=== PATIENT | female | born 1975 | race Caucasian/White ===

== ENCOUNTER 2018-11-14 | Emergency (ER) | payer BC, OTHER ==
[2018-11-14] MEDS ORDERED: LORazepam 2 MG/ML SDV IM ONE (00:30)
[2018-11-14] MEDS ORDERED: Ketorolac 60 MG/2 ML SDV IM ONE (00:30)
--- NOTE | 2018-11-14 00:36 | EDM.PDOC ---
ED HPI GENERAL MEDICAL PROBLEM - General Chief Complaint: General Stated Complaint: right arm pain Time Seen by Provider: 11/14/18 00:10 Source of Information: Reports: Patient History Limitations: Reports: No Limitations - History of Present Illness INITIAL COMMENTS - FREE TEXT/NARRATIVE: 43 YO HF presents to ER complaining of right sided neck pain with radiation to right arm and hand. Pt reports she recently started a new position where she is standing and reaching for long periods of time. Pt reports she had noticed some neck discomfort related to her repetitive activities and states she took some ibuprofen which improved her symptoms. Pt reports today after working she noticed pain in her right arm and hand. Pt reports pain was worse with movement. Pt reports tonight when she lied down for bed her pain became worse prompting ER evaluation. Pt denies any chest pain, arm swelling, shortness of breath. Pt reports she has had similar pain in the past and had improvement with massage and physical therapy. Onset: Today Location: Reports: Neck, Upper Extremity, Right Quality: Reports: Ache Severity: Moderate Improves with: Reports: None Worsens with: Reports: Rest Associated Symptoms: Reports: No Other Symptoms - Related Data Home Meds: Home Meds Cyclobenzaprine [Flexeril] 10 mg PO TID PRN #15 tab 11/14/18 [Rx] predniSONE [Prednisone] 20 mg PO DAILY #15 tablet 11/14/18 [Rx] traMADol [Ultram] 50 mg PO Q4H PRN #12 tab 11/14/18 [Rx] Past Medical History - Past Health History Medical/Surgical History: Denies Medical/Surgical History ED ROS GENERAL - Review of Systems Review Of Systems: See Below Constitutional: Reports: No Symptoms HEENT: Reports: No Symptoms Respiratory: Reports: No Symptoms Cardiovascular: Reports: No Symptoms Endocrine: Reports: No Symptoms GI/Abdominal: Reports: No Symptoms : Reports: No Symptoms Musculoskeletal: Reports: Neck Pain, Arm Pain Skin: Reports: No Symptoms Neurological: Reports: No Symptoms, Tingling. Denies: Headache, Numbness, Paresthesia, Difficulty Walking, Change in Speech Psychiatric: Reports: No Symptoms Hematologic/Lymphatic: Reports: No Symptoms Immunologic: Reports: No Symptoms ED EXAM, GENERAL - Physical Exam Exam: See Below Exam Limited By: No Limitations General Appearance: Alert, WD/WN, No Apparent Distress Eye Exam: Bilateral Eye: EOMI, PERRL Nose: Normal Inspection, Normal Mucosa, No Blood Throat/Mouth: Normal Inspection, Normal Lips, Normal Teeth, Normal Gums, Normal Oropharynx, Normal Voice, No Airway Compromise Head: Atraumatic, Normocephalic Neck: Supple, Full Range of Motion, Tender Lateral Respiratory/Chest: No Respiratory Distress, Lungs Clear, Normal Breath Sounds, No Accessory Muscle Use, Chest Non-Tender Cardiovascular: Normal Peripheral Pulses, Regular Rate, Rhythm, No Edema, No Gallop, No JVD, No Murmur, No Rub GI/Abdominal: Normal Bowel Sounds, Soft, Non-Tender, No Organomegaly, No Distention, No Abnormal Bruit, No Mass Back Exam: Normal Inspection, Full Range of Motion, NT Extremities: Normal Inspection, Normal Range of Motion, Non-Tender, Normal Capillary Refill, No Pedal Edema Neurological: Alert, Oriented, CN II-XII Intact, Normal Cognition, Normal Gait, Normal Reflexes, No Motor/Sensory Deficits Psychiatric: Normal Affect, Normal Mood Skin Exam: Warm, Dry, Intact, Normal Color, No Rash Lymphatic: No Adenopathy Course - Orders/Labs/Meds Orders: Active Orders 24 hr Category Date Time Status Ketorolac [Toradol] Med 11/14/18 00:30 Once 60 mg IM ONETIME ONE LORazepam [Ativan] Med 11/14/18 00:30 Once 1 mg IM ONETIME ONE Departure - Departure Time of Disposition: 00:41 Disposition: Home, Self-Care 01 Condition: Good Clinical Impression: Cervical paraspinal muscle spasm - Discharge Information Prescriptions: Cyclobenzaprine [Flexeril] 10 mg PO TID PRN #15 tab PRN Reason: Muscle Spasm predniSONE [Prednisone] 20 mg PO DAILY #15 tablet traMADol [Ultram] 50 mg PO Q4H PRN #12 tab PRN Reason: Pain Instructions: Muscle Cramps and Spasms, [id number] Referrals: Samanta Hess MD [Physician] - Additional Instructions: 1. discharge home 2. ultram 50mg PO Q4-6 PRN pain 3. flexeril 10mg PO TID PRN 4. prednisone 60mg PO QD x 5 days 5. follow up with PCP for further evaluation and treatment 6. return to ER for worsening symptoms - My Orders Last 24 Hours: My Active Orders 11/14/18 00:30 Ketorolac [Toradol] 60 mg IM ONETIME ONE LORazepam [Ativan] 1 mg IM ONETIME ONE - Assessment/Plan Last 24 Hours: My Active Orders 11/14/18 00:30 Ketorolac [Toradol] 60 mg IM ONETIME ONE LORazepam [Ativan] 1 mg IM ONETIME ONE Assessment:: 1. cervical spasm and radiculopathy Plan: 1. discharge home 2. ultram 50mg PO Q4-6 PRN pain 3. flexeril 10mg PO TID PRN 4. prednisone 60mg PO QD x 5 days 5. follow up with PCP for further evaluation and treatment 6. return to ER for worsening symptoms
[2018-11-14] MEDS ORDERED: traMADol 50 MG Tab PO ONE (01:00)
[2018-11-14] MEDS ORDERED: traMADol 50 MG Tab ONE (01:10)
== END 2018-11-14 01:10 | disposition home or self-care (01) ==
LOC: KA.ED
DX: M54.12 Radiculopathy, cervical region (principal); M62.830 Muscle spasm of back
CPT/HCPCS: 96372; 99283; J1885; J2060

== ENCOUNTER 2019-04-03 03:05 | Emergency (ER) | payer BC ==
[2019-04-03] MEDS: Dexamethasone 4 MG/ML SDV IM ONE (03:46)
[2019-04-03] MEDS: Acetaminophen/oxyCODONE 325-5 MG Tab PO ONE (03:48)
[2019-04-03] MEDS: Ketorolac 60 MG/2 ML SDV IM ONE (03:49)
--- NOTE | 2019-04-03 03:49 | EDM.PDOC ---
ED HPI GENERAL MEDICAL PROBLEM - General Chief Complaint: General Stated Complaint: L shoulder pain Time Seen by Provider: 04/03/19 03:37 Source of Information: Reports: Patient History Limitations: Reports: No Limitations - History of Present Illness INITIAL COMMENTS - FREE TEXT/NARRATIVE: Patient's a 43-year-old female who presents to the emergency Department this morning with a complaint of left shoulder pain. Patient states that she's had progressing discomfort of left shoulder with range of motion over the last few days. Patient does have history of arthritis of right upper extremity, but this the first episode with left upper extremity. Last episode was 6 months ago that resolved with corticosteroids. Patient denies any specific injury or insult at this time. However, she does perform repetitive type motions at work. Patient denies chest pain, shortness of breath, fever, out of country travel, neck pain, back pain, nausea or vomiting. Onset: Gradual Duration: Day(s): Location: Reports: Upper Extremity, Left Quality: Reports: Ache Severity: Moderate Improves with: Reports: None Worsens with: Reports: Movement Context: Reports: Activity. Denies: Trauma Associated Symptoms: Reports: No Other Symptoms. Denies: Chest Pain, Cough, Fever/Chills, Nausea/Vomiting, Shortness of Breath - Related Data Allergies Allergy/AdvReac Type Severity Reaction Status Date / Time No Known Drug Allergies Allergy Other Verified 04/03/19 03:08 Home Meds: Home Meds Cyclobenzaprine [Flexeril] 10 mg PO TID PRN #15 tab 11/14/18 [Rx] Ibuprofen 800 mg PO Q4H PRN 11/14/18 [History] Levothyroxine [Synthroid] 50 mcg PO ACBREAKFAST 11/14/18 [History] traMADol [Ultram] 50 mg PO Q4H PRN #12 tab 11/14/18 [Rx] Celecoxib [CeleBREX] 100 mg PO DAILY #30 cap 04/03/19 [Rx] predniSONE [Prednisone] 20 mg PO ASDIRECTED 04/03/19 [History] predniSONE [Prednisone] 20 mg PO DAILY #7 tablet 04/03/19 [Rx] Past Medical History - Past Health History Medical/Surgical History: Denies Medical/Surgical History [employer]IST History: Reports: Psychiatric History: Reports: Anxiety Endocrine/Metabolic History: Reports: Hyperthyroidism, Hypothyroidism, Other ( See Below) Other Endocrine/Metabolic History: unsure if hyper or hypo thyroidism, but she states she take levothyroxine daily. ED ROS GENERAL - Review of Systems Review Of Systems: ROS reveals no pertinent complaints other than HPI. Constitutional: Reports: No Symptoms HEENT: Reports: No Symptoms Respiratory: Reports: No Symptoms Cardiovascular: Reports: No Symptoms Endocrine: Reports: No Symptoms GI/Abdominal: Reports: No Symptoms : Reports: No Symptoms Musculoskeletal: Reports: Shoulder Pain (Left), Joint Pain Skin: Reports: No Symptoms Neurological: Reports: No Symptoms Psychiatric: Reports: No Symptoms Hematologic/Lymphatic: Reports: No Symptoms Immunologic: Reports: No Symptoms ED EXAM, GENERAL - Physical Exam Exam: See Below Exam Limited By: No Limitations General Appearance: Alert, WD/WN, No Apparent Distress Throat/Mouth: Normal Inspection, Normal Oropharynx, No Airway Compromise Head: Atraumatic, Normocephalic Neck: Normal Inspection, Supple Respiratory/Chest: No Respiratory Distress, Lungs Clear, Normal Breath Sounds Cardiovascular: Regular Rate, Rhythm, No Murmur GI/Abdominal: Normal Bowel Sounds, Soft Back Exam: Normal Inspection Extremities: Normal Capillary Refill, Arm Pain (Right shoulder pain with range of motion and palpation. No crepitus, erythema, edema noted), Limited Range of Motion (Secondary to pain). No: Normal Range of Motion, Non-Tender, Joint Swelling, Increased Warmth, Redness Neurological: Alert, Oriented, No Motor/Sensory Deficits Psychiatric: Anxious Skin Exam: Warm, Dry, Intact, Normal Color, No Rash Lymphatic: No Adenopathy Course - Vital Signs Last Recorded V/S: Last Vital Signs Temp 97.7 F 04/03/19 03:25 Pulse 94 04/03/19 03:25 Resp 18 04/03/19 03:25 BP 117/73 04/03/19 03:25 Pulse Ox 98 04/03/19 03:25 - Orders/Labs/Meds Orders: Active Orders 24 hr Category Date Time Status Acetaminophen/oxyCODONE [Percocet 325-5 MG] Med 04/03/19 03:39 Once 1 tab PO ONETIME ONE Ketorolac [Toradol] Med 04/03/19 03:38 Once 60 mg IM ONETIME ONE dexAMETHasone [Dexamethasone] Med 04/03/19 03:39 Once 8 mg IM ONETIME ONE - Re-Assessments/Exams Free Text/Narrative Re-Assessment/Exam: 04/03/19 04:09 Patient afebrile, vital signs stable, discomfort, mostly relieved. Patient given prescription for prednisone and Celebrex. Patient will follow-up with PCP in next 2-3 days. Departure - Departure Time of Disposition: 04:09 Disposition: Home, Self-Care 01 Condition: Good Clinical Impression: Arthritis Shoulder pain, left Qualifiers: Chronicity: acute Qualified Code(s): M25.512 - Pain in left shoulder - Discharge Information Instructions: Joint Pain, [id number], Arthritis, [id number], Shoulder Pain , [id number] Referrals: Samanta Hess MD [Primary Care Provider] - Additional Instructions: Follow-up at the [facility] in next 2-3 days. Return to emergency department sooner if symptoms continue or worsen. Take medication as prescribed. - My Orders Last 24 Hours: My Active Orders 04/03/19 03:38 Ketorolac [Toradol] 60 mg IM ONETIME ONE 04/03/19 03:39 Acetaminophen/oxyCODONE [Percocet 325-5 MG] 1 tab PO ONETIME ONE dexAMETHasone [Dexamethasone] 8 mg IM ONETIME ONE - Assessment/Plan Last 24 Hours: My Active Orders 04/03/19 03:38 Ketorolac [Toradol] 60 mg IM ONETIME ONE 04/03/19 03:39 Acetaminophen/oxyCODONE [Percocet 325-5 MG] 1 tab PO ONETIME ONE dexAMETHasone [Dexamethasone] 8 mg IM ONETIME ONE Assessment:: Arthritis Plan: Follow-up with PCP
[2019-04-03] MEDS: Dexamethasone 4 MG/ML SDV ONE (03:55)
[2019-04-03] MEDS: Dexamethasone 10 MG/ML SDV IM ONE (03:55)
== END 2019-04-03 04:20 | disposition home or self-care (01) ==
LOC: KA.ED 03:05
DX: M19.012 Primary osteoarthritis, left shoulder (principal); E03.9 Hypothyroidism, unspecified; Z79.890 Hormone replacement therapy
CPT/HCPCS: 96372; 99283; A9270; J1100; J1885

== ENCOUNTER 2022-05-15 20:45 | Emergency (ER) | payer BC ==
[2022-05-15] MEDS: Sodium Chloride 0.9% 1,000 ML IV ONE (21:06)
[2022-05-15] MEDS: Ondansetron 4 MG/2 ML SDV IVPUSH ONE (21:08)
[2022-05-15] MEDS: Sodium Chloride 0.9% 1,000 ML ONE (21:08)
[2022-05-15] MEDS: Ondansetron 4 MG/2 ML SDV ONE (21:08)
[2022-05-15] MEDS: LORazepam 2 MG/ML SDV IVPUSH ONE (21:30)
[2022-05-15 21:37] LABS: ANION GAP 11.5 mmol/L (5-15)
[2022-05-15 22:15] VITALS: BP 115/66; PULSE 107
[2022-05-15] MEDS: Potassium Chloride 20 MEQ Tab.ER PO ONE (22:20)
[2022-05-15] MEDS: LORazepam 0.5 MG Tab PO ONE (22:23)
== END 2022-05-15 22:40 | disposition home or self-care (01) ==
LOC: KA.ED 20:45
DX: F41.9 Anxiety disorder, unspecified (principal); E87.6 Hypokalemia; M06.9 Rheumatoid arthritis, unspecified; E03.9 Hypothyroidism, unspecified; Z79.899 Other long term (current) drug therapy
CPT/HCPCS: 36415; 80053; 83690; 84439; 84443; 84479; 84484; 85025; 96361; 96374; 96375; 99285-25; A9270-GY; J2060; J2405; J7030

== ENCOUNTER 2023-09-17 18:42 | Emergency (ER) | payer BC, OTHER | END 2023-09-17 20:37 | disposition home or self-care (01) | LOC: KA.ED 18:42 | DX: S40.012A Contusion of left shoulder, initial encounter (principal); E03.9 Hypothyroidism, unspecified; Z86.16 Personal history of COVID-19; Z79.899 Other long term (current) drug therapy; W00.0XXA Fall on same level due to ice and snow, initial encounter | CPT/HCPCS: 73030-LT; 99283 ==

== ENCOUNTER 2024-12-18 06:22 | Observation (INO) | payer BC ==
[2024-12-18 06:50] LABS: BASOPHILS ABSOLUTE AUTO 0.05 10^3/uL (0.00-0.10); BASOPHILS PERCENT AUTO 0.5 % (0.0-1.0); EOSINOPHILS ABSOLUTE AUTO 0.18 10^3/uL (0.10-0.30); EOSINOPHILS PERCENT AUTO 1.8 % (1.0-3.0); HEMATOCRIT 42.4 % (37.0-47.0); HEMOGLOBIN 13.7 g/dL (12.0-16.0); IMMATURE GRAN ABSOLUTE AUTO 0.03 10^3/uL (0.00-0.04); IMMATURE GRAN PERCENT AUTO 0.3 % (0.0-0.4); LYMPHOCYTES ABSOLUTE AUTO 4.08 10^3/uL (1.00-4.00); MEAN CORPUSCULAR HEMOGLOBIN 29.2 pg (27.0-31.0); MEAN CORPUSCULAR HGB CONC 32.3 g/dL (32.0-36.0); MEAN CORPUSCULAR VOLUME 90.4 fL (82.0-92.0); MEAN PLATELET VOLUME 9.5 fL (7.4-10.4); MONOCYTES ABSOLUTE AUTO 0.77 10^3/uL (0.10-0.80); MONOCYTES PERCENT AUTO 7.5 % (2.0-8.0); NEUTROPHILS ABSOLUTE AUTO 5.09 10^3/uL (2.50-7.00); NEUTROPHILS PERCENT AUTO 49.9 % (50.0-70.0); PLATELET COUNT,PLT 306 10^3/uL (150-400); RED BLOOD CELL COUNT 4.69 10^6/uL (3.80-5.50); RED CELL DISTRIBUTION WIDTH 15.2 % (11.5-14.5)
[2024-12-18] MEDS: Sodium Chloride 0.9% 1,000 ML IV ONE (07:00)
[2024-12-18] MEDS: Ondansetron 4 MG/2 ML SDV IVPUSH ONE (07:07)
[2024-12-18] MEDS: LORazepam 2 MG/ML SDV IVPUSH ONE (07:08)
[2024-12-18] MEDS: Meclizine 25 MG Tab PO ONE (07:09)
[2024-12-18 07:13] LABS: ALBUMIN 3.1 g/dL (3.40-5.00); ANION GAP 13.2 mmol/L (5-15); BILIRUBIN TOTAL 0.5 mg/dL (0.2-1.0); CALCIUM 8.8 mg/dL (8.7-10.3); CARBON DIOXIDE,CO2 28.5 mmol/L (21.0-32.0); CREATININE 0.64 mg/dL (0.51-1.17); EST CRCL DRUG DOSING (CG) 81.12 mL/min; POTASSIUM,K 3.7 mmol/L (3.5-5.1); PROTEIN TOTAL,TP 8.3 g/dL (6.4-8.2)
[2024-12-18] MEDS: Lactated Ringers 1,000 ML IV SCH (08:11)
[2024-12-18 08:51] LABS: HEMOGLOBIN A1C 6.4 % (4.3-5.7)
[2024-12-18] MEDS ORDERED: Ondansetron 4 MG Tab.DIS PO PRN (10:17)
[2024-12-18] MEDS ORDERED: oxyCODONE 5 MG Tab PO PRN (10:17)
[2024-12-18] MEDS ORDERED: LORazepam 0.5 MG Tab PO PRN (10:20)
[2024-12-18] MEDS ORDERED: Omeprazole 20 MG Cap.CR PO PRN (10:20)
[2024-12-18 10:47] LABS: C-REACTIVE PROTEIN 2.29 mg/dL (0.00-0.50); TSH ULTRASENSITIVE 5.792 uIU/mL (0.340-4.820)
[2024-12-18] MEDS: Ibuprofen 200 MG Tab PO PRN (11:01)
[2024-12-18 12:25] LABS: APPEARANCE,URINE CLEAR (CLEAR); BILIRUBIN,URINE NEGATIVE (NEGATIVE); COLOR,URINE YELLOW (YELLOW); GLUCOSE,URINE NEGATIVE (NEGATIVE); KETONES,URINE NEGATIVE (NEGATIVE); LEUKOCYTE ESTERASE,URINE NEGATIVE (NEGATIVE); NITRITE,URINE NEGATIVE (NEGATIVE); OCCULT BLOOD,URINE NEGATIVE (NEGATIVE); PH,URINE 5.5 (5.0-9.0); PROTEIN,URINE NEGATIVE (NEGATIVE); UROBILINOGEN,URINE 0.2 E.U./dL (0.2-1.0)
[2024-12-18] MEDS ORDERED: DULoxetine 30 MG Cap PO SCH (21:00)
[2024-12-18] MEDS: DULoxetine 30 MG Cap PO SCH (21:52)
[2024-12-18] MEDS: Folic Acid 1 MG Tab PO SCH (21:52)
[2024-12-19] MEDS: Levothyroxine 25 MCG Tab PO SCH (06:27)
[2024-12-19] MEDS: Cholecalciferol (Vitamin D3) 25 MCG Tab PO SCH (08:15)
[2024-12-19] MEDS: Aspirin 81 MG Tab.EC PO SCH (08:15)
[2024-12-19] MEDS ORDERED: predniSONE 20 MG Tab PO SCH (10:00)
[2024-12-19] MEDS: predniSONE 20 MG Tab PO ONE (10:31)
[2024-12-19 14:32] VITALS: BP 132/75; PULSE 90
== END 2024-12-19 12:40 | disposition home or self-care (01) ==
LOC: KA.ED 06:22 → KA.MS 08:58
PROVIDERS: ADMIT Family Medicine; ATTEND Family Medicine
DX: R42 Dizziness and giddiness (principal); M06.9 Rheumatoid arthritis, unspecified; E03.9 Hypothyroidism, unspecified; K21.9 Gastro-esophageal reflux disease without esophagitis; F41.9 Anxiety disorder, unspecified; M05.79 Rheumatoid arthritis with rheumatoid factor of multiple sites without organ or systems involvement; I10 Essential (primary) hypertension; Z79.899 Other long term (current) drug therapy
CPT/HCPCS: 70450; 71045; 80053; 81003; 82947; 83036; 84443; 84484; 85025; 86140; 93010; 96361; 96374; 96375; 99223-GT; 99284; 99285-25; A9270-GY; G0378; J2060; J2405; J7030; J7120; J7512; Q3014